=== PATIENT | female | born 1965 | race American Indian/Alaskan Native ===

== ENCOUNTER 2017-01-07 13:02 | Emergency (ER) | payer OTHER ==
[2017-01-07 13:17] VITALS: BP 144/85; PULSE 75; RESP 20; TEMP 98.1; O2SAT 99
--- NOTE | 2017-01-07 13:39 | C.PDOC ---
History Of Present Illness 52 y/o female presents to ED with complaints of pain to right fingers secondary to slamming hand in car door 2 days ago. Patient states she took Ibuprofen with relief. Patient denies numbness, tingling, weakness or any other complaints at this time. Time Seen by Provider: 01/07/17 13:28 Chief Complaint (Nursing): Upper Extremity Problem/Injury History Per: Patient History/Exam Limitations: no limitations Onset/Duration Of Symptoms: Days Current Symptoms Are (Timing): Still Present Quality: "Pain" Severity: Mild Exacerbating Factor(s): Movement Past Medical History Reviewed: Historical Data, Nursing Documentation, Vital Signs Vital Signs: Last Vital Signs Temp 98.1 F 01/07/17 13:17 Pulse 75 01/07/17 13:17 Resp 20 01/07/17 13:17 BP 144/85 01/07/17 13:17 Pulse Ox 99 01/07/17 14:14 - Medical History PMH: No Chronic Diseases Surgical History: No Surg Hx Family History: States: No Known Family Hx - Social History Hx Alcohol Use: No Hx Substance Use: No - Immunization History Hx Tetanus Toxoid Vaccination: Yes Hx Influenza Vaccination: Yes Hx Pneumococcal Vaccination: Yes Review Of Systems Constitutional: Negative for: Fever, Chills Musculoskeletal: Positive for: Hand Pain Skin: Negative for: Rash, Bruising Neurological: Negative for: Weakness, Numbness Physical Exam - Physical Exam Additional Physical Exam Comments: Constitutional: No acute distress. WDWN. Head: Normocephalic. Atraumatic. Neck: Supple. Musculoskeletal: Full ROM of right hand, wrist non tender. . (+)Tenderness to middle phalanges 2-5 minimal swelling, able to make fist. Pulses: 2+ radial pulses bilaterally , cap refill less than 2 seconds. Skin: No rash. no ecchymosis, skin intact Neurologic: Alert, no focal deficit. ED Course And Treatment O2 Sat by Pulse Oximetry: 99 (RA) Progress Note: Xray right hand to rule out Fracture Medical Decision Making Medical Decision Making: questionab;le fx of proximal phalanx 5th digit; finger splint applied. Disposition Counseled Patient/Family Regarding: Studies Performed, Diagnosis, Need For Followup, Rx Given - Disposition Referrals: Clinic,Med Surg [Primary Care Provider] - Disposition: HOME/ ROUTINE Disposition Time: 14:12 Condition: STABLE Additional Instructions: Wear splint on 5th right finger for comfort. Take ibuprofen for pain. Cold compresses to right hand several times a day. Follow up in medical clinic if pain persists after a week. Prescriptions: Ibuprofen [Motrin] 600 mg PO TID #30 tab Instructions: Finger Sprain (ED) Forms: [facility] ([place]an), General Discharge Instructions - Clinical Impression Clinical Impression: Injury of multiple sites of right hand and fingers - PA / [employer] / Resident Statement MD/DO has reviewed & agrees with the documentation as recorded. - Scribe Statement The provider has reviewed the documentation as recorded by the Scribkellen Peterson All medical record entries made by the Jj were at my direction and personally dictated by me. I have reviewed the chart and agree that the record accurately reflects my personal performance of the history, physical exam, medical decision making, and the department course for this patient. I have also personally directed, reviewed, and agree with the discharge instructions and disposition.
--- NOTE | 2017-01-07 14:39 | RAD ---
PROCEDURE: Right Hand Radiographs. HISTORY: pain to fingers s/p slammed in door COMPARISON: None available. FINDINGS: BONES: No acute displaced fracture. JOINTS: No dislocation. SOFT TISSUES: Soft tissues swelling. No evidence of radiopaque foreign body. OTHER FINDINGS: None. IMPRESSION: Soft tissue swelling. No acute displaced fracture, dislocation, or significant joint effusion identified. If symptoms persist, or if there is continued clinical concern, x-ray follow-up in 7-10 days should be considered.
== END 2017-01-07 14:25 | disposition home or self-care (01) ==
LOC: SUPCPDRO 13:02 → C.ER 13:02
DX: S69.91XA Unspecified injury of right wrist, hand and finger(s), initial encounter (principal); W22.8XXA Striking against or struck by other objects, initial encounter